=== PATIENT | male | born 1960 | race Caucasian/White ===

== ENCOUNTER 2023-08-28 12:45 | Outpatient (OUT) | payer MEDICAID, SELFPAY ==
--- NOTE | 2023-08-28 | US_ITS ---
[address] [address] Patient Name: JUAN JOSÉ NULL MRN: [id number] date: 1960 Sex: M Assigned Patient Location: US Current Patient Location: Accession/Order Number: [id number] Exam Date: 08/28/2023 12:40 Report Date: 08/30/2023 06:46 At the request of: NON-STAFF PHYSICIAN Procedure: US venous doppler LE RT EXAMINATION: US venous doppler LE RT HISTORY: RIGHT CALF PAIN M 79.661 COMPARISON: No relevant comparison available. FINDINGS: REGION: Right lower extremity THROMBI: None. COMPRESSIBILITY: Normal compressibility. FLOW: Normal waveform and antegrade flow between 5 and 20 cm/s. OTHER: None. US/US venous doppler LE RT IMPRESSION: 1. No deep vein thrombus within right lower extremity. Electronically authenticated by: WON CAREY Date: 08/30/2023 06:46
== END 2023-08-28 12:46 | disposition home or self-care (01) ==
LOC: US 12:46
DX: M79.661 Pain in right lower leg (principal)
CPT/HCPCS: 93971